=== PATIENT | female | born 1960 | race American Indian/Alaskan Native ===

== ENCOUNTER 2016-11-12 08:47 | Outpatient (CLI) | payer MEDICARE ==
[2016-11-12] MEDS ORDERED: NACL ONE ×2 (10:25→10:57)
[2016-11-12 10:51] LABS: Blood Urea Nitrogen 13 mg/dL (7-17)
--- NOTE | 2016-11-13 09:20 | Cat Scan Report ---
CT ANGIOGRAM ABDOMEN/FEMORAL ABDOMINAL AORTA: INDICATION: Atherosclerosis of [place] arteries of extremities with rest pain. COMPARISON: None similar at this institution. FINDINGS: CT angiogram of the abdomen, pelvis and both lower extremities performed. Axial, sagittal, coronal and computer-generated MIP reconstructions obtained. LUNG BASES: Borderline/mild cardiomegaly. Nonspecific distal esophageal wall prominence/thickening, not excluded for gastroesophageal reflux and/or hiatal hernia, amongst others. ABDOMEN: Left hepatic lobe tip extends into the left upper quadrant. Otherwise unremarkable liver, spleen, gallbladder, pancreas, adrenals and IVC. Non-hydronephrotic kidneys with collecting system densities possibly contrast excretion rather than nephrolithiasis. Few small mesenteric lymph nodes measure up to 1.3 cm as on axial series 2, images 180 and 240, amongst others. Numerous other predominantly subcentimeter retroperitoneal and mesenteric lymph nodes also seen. No ascites. Nonopacified GI tract evaluation limited, though grossly nonobstructive. Normal appendix. CTA images demonstrate non-aneurysmal abdominal aorta with a rather small caliber of approximately 1.1 cm at the level of the renal arteries, axial image 128. Infrarenal aortic atherosclerotic changes also seen with approximately 70% stenosis approximately 4.5 cm below the level of the renal arteries as on axial image 82, series 3. Patent celiac axis, SMA and bilateral renal arteries. HENOK appears tiny. PELVIS: Minimal contrast noted in the urinary bladder that is otherwise suboptimally distended and assessed. Uterus surgically absent. No free fluid. Iliac/lateral pelvic wall lymph nodes measure up to 2 x 1 cm on the right, axial image 3-55, series 2. CTA images demonstrate patent bilateral internal and external iliac arteries. Left greater than right, iliac artery atherosclerotic changes. Common femoral arteries patent at both groins. RIGHT LEG: Approximately 50% right mid SFA stenosis on axial image 492, series 2. Otherwise patent right femoral and popliteal arteries. Patent 3 vessel runoff noted below the knee extending up to the ankle. Patent dorsalis pedis. LEFT LEG: Patent left femoral and popliteal arteries, though mild, approximately 40% narrowing of the left mid SFA possible as on axial image 530, series 2. Patent 3 vessel runoff noted below the knee extending up to the ankle with patent dorsalis pedis as well. Severe L5-S1 disc narrowing with vacuum phenomenon and adjacent sclerosis. Mild bilateral SI and hip degenerative changes as well. CONCLUSION: 1. Somewhat small caliber abdominal aorta with infrarenal atherosclerotic changes, including a short segment/focal stenosis, as detailed above. 2. Mild narrowing along bilateral mid superficial femoral arteries also suspected. 3. Various other findings, including at the lung bases, couple of prominent mesenteric lymph nodes, atherosclerotic changes, hysterectomy and severe L5-S1 degeneration, amongst others, as above. Thank you for the opportunity to participate in this patient's care.
== END 2016-11-12 08:48 | disposition home or self-care (01) ==
LOC: CT 08:47
PROVIDERS: ATTEND Surgery Vascular Surgery
DX: I70.223 Atherosclerosis of native arteries of extremities with rest pain, bilateral legs (principal); M16.0 Bilateral primary osteoarthritis of hip; N32.89 Other specified disorders of bladder; I10 Essential (primary) hypertension; E11.9 Type 2 diabetes mellitus without complications; Z90.710 Acquired absence of both cervix and uterus
CPT/HCPCS: 36415; 75635; 82565; 84520; Q9967

== ENCOUNTER 2016-11-27 06:45 | Day surgery (SDC) | payer MEDICARE, OTHER ==
[~2016-11-27 06:45] MED LIST: NACL 0.9% 1000 ML 1,000 ML IV SCH; VANCOMYCIN/NS 1 GM/250 ML 1 GM/250 ML BAG IV NR
[2016-11-27 07:50] LABS: Basophils % (Auto) 0.1 % (0.0-1.8); Eosinophils % (Auto) 2.6 % (0.0-4.3); Hematocrit 37.1 % (30.3-42.9); Hemoglobin 12.7 gm/dl (10.1-14.3); Mean Corpuscular HGB Conc 34 % (30-34); Mean Corpuscular Hemoglobin 30 pg (28-32); Mean Corpuscular Volume 86 fl (79-97); Platelet Count 308 K/mm3 (140-440); Red Blood Count 4.31 M/mm3 (3.65-5.03); Red Cell Distribution Width 14.2 % (13.2-15.2); White Blood Count 8.1 K/mm3 (4.5-11.0)
[2016-11-27 07:59] LABS: INR 0.93 (0.87-1.13)
[2016-11-27 08:00] LABS: Partial Thromboplastin Time 38.1 Sec. (24.2-36.6)
[2016-11-27 08:09] LABS: Anion Gap 17 mmol/L; BUN/Creatinine Ratio 20; Blood Urea Nitrogen 14 mg/dL (7-17); Calcium 9.6 mg/dL (8.4-10.2); Carbon Dioxide 27 mmol/L (22-30); Chloride 99.3 mmol/L (98-107); Glucose 94 mg/dL (65-100); Sodium 139 mmol/L (137-145)
[2016-11-27] MEDS ORDERED: XYLOCAINE 1%/ EPI 1:100,000 INFILTRATI ONE (08:50)
[2016-11-27] MEDS ORDERED: HEPARIN/NS 5000 UNIT/500ML(CATH LAB) 1,000 ML IR ONE (08:50)
[2016-11-27] MEDS ORDERED: ANCEF/STERILE WATER 2 GM/20 ML 0 GM/0 ML SYRINGE IV ONE (08:51)
[2016-11-27] MEDS: VERSED ONE ×2 (09:13→09:34)
[2016-11-27] MEDS: SUBLIMAZE ONE ×2 (09:16→09:33)
[2016-11-27] MEDS ORDERED: HEPARIN 10,000 UNITS/10 ML ONE (09:52)
[2016-11-27] MEDS ORDERED: VERSED ONE (09:56)
[2016-11-27] MEDS ORDERED: SUBLIMAZE ONE ×2 (09:56→10:34)
[2016-11-27] MEDS ORDERED: DILAUDID IV PRN (10:38)
[2016-11-27] MEDS ORDERED: NORCO 5/325 PO PRN (10:38)
[2016-11-27] MEDS ORDERED: SUBLIMAZE IV ONE (10:42)
[2016-11-27] MEDS ORDERED: CLEOCIN 600 MG/50 mL 600 MG/50 ML BAG IV SCH (11:00)
--- NOTE | 2016-11-27 11:15 | Operative Report ---
Operative Report Operative Report: Operative note: Date: 11/27/2016 Preoperative diagnosis: Bilateral thigh claudication with short distance, life limiting. Infrarenal aortic stenosis Postoperative diagnosis: Same. Operation: Ultrasound-guided right common femoral access. Aortogram with iliac imaging. Aortic stenting with 11 x 59 mm Viabahn VBX Surgeon: Karol Lindsey. Asst.: None Anesthesia: Moderate sedation EBL: Minimal Findings: 80% stenosis of mid infrarenal aorta, patent bilateral common iliacs, internal iliacs, external iliacs. Indications: 56-year-old female with life limiting thigh claudication bilaterally had CT a showing about 80% stenosis of mid infrarenal aorta. She was explained risks and benefits of procedure and chose to proceed, signed informed consent. Operative details: Patient was brought to the [employer] and placed in supine position. Both groins were prepped and draped in sterile fashion. Timeout performed. Preoperative antibiotics given. Under continuous ultrasound guidance planned access site was injected with 1% lidocaine and micropuncture needle inserted on top of common femoral artery. By August wire was inserted under fluoroscopy guidance and exchanged to micropuncture sheath. Using J-wire micropuncture sheath was exchanged to 5 [place] access sheath. Introducer was removed and sheath flushed with heparinized saline. A Glidewire was advanced through the stenotic area and pigtail catheter was positioned in the first lumbar vertebra area. All injector was used for aortogram there was bilateral renal arteries patent without areas of stenosis seen with right accessory renal that was marked. There was a bifurcation of common iliac arteries which were both patent, was marked to sunscreen. The lesion was also marked. With plan to treat, patient was heparinized with 5000 units of heparin. Amplatz wire was inserted and the pigtail was removed. 5 [place] access sheath was exchanged to 8 [place]. 11 x 59 mm balloon expandable stent was successfully deployed. Completion aortogram was performed showing no residual stenosis, patent renal arteries and patent bifurcation. Wire and catheter was removed and exit J-wire was introduced, access sheath was removed. Angiogram was performed confirming common femoral access. 8 [place]kin[place] Angio-Seal was successfully deployed. Patient tolerated the procedure well and was transferred to PACU in stable condition.
--- NOTE | 2016-11-27 16:08 | Short Stay Summary ---
Short Stay Documentation Date of service: 11/27/16 - History H&P: obtained from office - Allergies and Medications Current Medications: Allergies codeine Allergy (Verified 11/27/16 07:13) Rash Penicillins Allergy (Verified 11/27/16 07:13) Rash Home Medications Medication Instructions Recorded Confirmed Last Taken Type HYDROcodone/APAP 5-325 [[place] 2 each PO Q6HR PRN #40 tablet 11/27/16 Unknown Rx 5/325 mg] NovoLOG Flexpen 25 units SUB-Q BID 11/27/16 11/27/16 11/26/16 History Tresiba Flextouch U-200 30 units SUB-Q BID 11/27/16 11/27/16 11/26/16 History Valsartan/Hydrochlorothiazide 1 tab PO QDAY 11/27/16 11/27/16 11/27/16 05:30 History [Diovan Hct 160-12.5 mg] glipiZIDE [Glucotrol] 10 mg PO BID 11/27/16 11/27/16 11/26/16 History Active Medications Acetaminophen/Hydrocodone Bitart ([place] 5/325) 2 each PO Q6H PRN PRN Reason: Pain, Moderate (4-6) Last Admin: 11/27/16 11:45 Dose: 2 each Clopidogrel Bisulfate (Plavix) 75 mg PO QDAY HILDA Glipizide (Glucotrol) 10 mg PO BID HILDA Hydrochlorothiazide (Hctz) 12.5 mg PO QDAY HILDA Hydromorphone HCl (Dilaudid) 0.25 mg IV Q3H PRN PRN Reason: Pain, Moderate (4-6) Sodium Chloride (Nacl 0.9% 1000 Ml) 1,000 mls @ 42 mls/hr IV DIRECT HILDA Last Admin: 11/27/16 08:41 Dose: 42 mls/hr Clindamycin HCl (Cleocin 600 Mg/50 Ml) 600 mg in 50 mls @ 100 mls/hr IV Q8H HILDA Stop: 11/27/16 19:29 Last Admin: 11/27/16 15:40 Dose: 100 mls/hr Insulin Aspart (Novolog) 22 units SUB-Q BID HILDA Miscellaneous Medication (Tresiba Flextouch U-200) 30 units SUB-Q BID HILDA Valsartan (Diovan) 160 mg PO QDAY HILDA - Brief post op/procedure progress note Procedure: Operative Report Operative Report: Operative note: Date: 11/27/2016 Preoperative diagnosis: Bilateral thigh claudication with short distance, life limiting. Infrarenal aortic stenosis Postoperative diagnosis: Same. Operation: Ultrasound-guided right common femoral access. Aortogram with iliac imaging. Aortic stenting with 11 x 59 mm Viabahn VBX Surgeon: Rhea Lindsey. Asst.: None Anesthesia: Moderate sedation EBL: Minimal Findings: 80% stenosis of mid infrarenal aorta, patent bilateral common iliacs, internal iliacs, external iliacs. Indications: 56-year-old female with life limiting thigh claudication bilaterally had CT a showing about 80% stenosis of mid infrarenal aorta. She was explained risks and benefits of procedure and chose to proceed, signed informed consent. - Hospital course Hospital course: Pt was admitted and the above stated procedure was completed without complication. Post-operatively the pt c/o significant lower abd and back pain. Initially it was felt that she may require admission. Upon follow up her pain was much improved. She o/w appeared to be doing well. She felt as though she would be able to d/c home. She will f/u in our office in 1-2wks as previously scheduled. - Disposition Condition at discharge: Stable Disposition: [id number] TO HOME OR SELFCARE - Discharge Diagnoses (1) Aortic stenosis Status: Acute Qualifiers: Cardiac valve disease etiology: C (2) Atherosclerosis of [place] arteries of extremity with intermittent claudication Status: Acute Qualifiers: Peripheral atherosclerosis location: P Laterality: L Short Stay Discharge Plan Activity: advance as tolerated Weight Bearing Status: Weight Bear as Tolerated Diet: regular Wound: keep clean and dry Follow up with: RHEA LINDSEY DO [Staff Physician] - 14 Days Prescriptions: Clopidogrel [Plavix] 75 mg PO QDAY #30 tablet HYDROcodone/APAP 5-325 [[place] 5/325 mg] 2 each PO Q6HR PRN #40 tablet PRN Reason: Pain
[2016-11-27 17:07] VITALS: BP 126/63
[2016-11-27] MEDS ORDERED: TRESIBA U SUB-Q SCH (22:00)
[2016-11-27] MEDS ORDERED: INSULIN ASPART SUB-Q SCH (22:00)
[2016-11-27] MEDS ORDERED: GLUCOTROL PO SCH (22:00)
[2016-11-27] MEDS ORDERED: NOVOLOG SUB-Q SCH (22:00)
[2016-11-28] MEDS ORDERED: PLAVIX PO SCH (10:00)
[2016-11-28] MEDS ORDERED: VALSARTAN PO SCH (10:00)
[2016-11-28] MEDS ORDERED: HCTZ PO SCH (10:00)
[2016-11-28] MEDS ORDERED: HYDROCHLOROTHIAZIDE PO SCH (10:00)
[2016-11-28] MEDS ORDERED: DIOVAN PO SCH (10:00)
== END 2016-11-27 17:00 | disposition home or self-care (01) ==
LOC: CATHLABREC 06:45
PROVIDERS: ATTEND Surgery Vascular Surgery
DX: I70.233 Atherosclerosis of native arteries of right leg with ulceration of ankle (principal); I35.0 Nonrheumatic aortic (valve) stenosis; E11.9 Type 2 diabetes mellitus without complications; I10 Essential (primary) hypertension; Z90.710 Acquired absence of both cervix and uterus; Z98.890 Other specified postprocedural states; Z88.0 Allergy status to penicillin; Z88.5 Allergy status to narcotic agent; Z79.899 Other long term (current) drug therapy; Z79.4 Long term (current) use of insulin
CPT/HCPCS: 36415; 37236; 75625; 80048; 85025; 85610; 85730; 96374; C1760; C1769; C1887; C1894; J1644; J2250; J3010; J3370; J7030; Q9967; J0690

== ENCOUNTER 2016-12-23 07:49 | Outpatient (CLI) | payer OTHER ==
[2016-12-23 08:16] LABS: Blood Urea Nitrogen 12 mg/dL (7-17)
[2016-12-23] MEDS ORDERED: NACL ONE (09:02)
--- NOTE | 2016-12-24 14:04 | Cat Scan Report ---
CT angiography of the abdomen and pelvis and bilateral runoffs CT angiography including 3-D reconstructed images. History: Atherosclerosis of [place] arteries of extremities. Findings: Comparison is made to the previous study performed on November 13, 2016. Since the prior study, there has been placement of an aortic endovascular stent graft in the infrarenal abdominal aorta. There is no evidence of endoleak. The celiac axis, superior mesenteric artery, and renal arteries are patent. The common iliac and external iliac arteries are normal. Mild narrowing in the mid superficial femoral arteries bilaterally is unchanged. The popliteal arteries are patent. There is three-vessel runoff bilaterally with no significant interval change. The liver, spleen, pancreas, and kidneys are unremarkable. Nonenlarged mesenteric and retroperitoneal lymph nodes are again identified. Degenerative changes in the lumbar spine are again noted. Impression: 1. Interval placement of infrarenal abdominal aortic stent graft with no evidence of endoleak or other significant findings. 2. Mild stenosis of the mid superficial femoral arteries bilaterally, unchanged. 3 vessel runoff is demonstrated in both lower extremities. 3. Scattered nonenlarged mesenteric and retroperitoneal lymph nodes with no interval change.
== END 2016-12-23 07:50 | disposition home or self-care (01) ==
LOC: CT 07:49
PROVIDERS: ATTEND Surgery Vascular Surgery
DX: I70.223 Atherosclerosis of native arteries of extremities with rest pain, bilateral legs (principal); M47.896 Other spondylosis, lumbar region
CPT/HCPCS: 36415; 75635; 82565; 84520; Q9967